=== PATIENT | male | born 1950 | race Caucasian/White ===

== ENCOUNTER 2023-05-01 11:07 | Day surgery (SDC) | payer OTHER ==
[~2023-05-01] VITALS: Ht 172.7 cm; Wt 127.9 kg
[~2023-05-01 11:07] MED LIST: ASCO500T11 PO; ATOR-507 PO; B-COTAB59 OR; CALCTAB OR; DAPA1TAB7 PO; DOXA1TAB84 PO; FLUT1AER3 IN; INSU100I33 SC; LISI2.5T47 PO; MULT-1018 OR; OMEG-20 PO; PANT40TA2 PO; PRAM0.373 PO; SEMA2INJ3 SC; VITA100T3 PO; ZINC50TA7 PO
[2023-05-01] MEDS ORDERED: ceFAZolin 2 GM/D5W50ml 50 ML IV ONE (12:55)
[2023-05-01] MEDS ORDERED: BUPIVACAINE HCL 0 ML ONE (13:52)
[2023-05-01] MEDS ORDERED: LIDOCAINE 2%HCL (LOCAL ANESTH.) INJ 10ml MDV ONE (13:52)
[2023-05-01] MEDS ORDERED: BUPIVACAINE 0.5% P/F INJ 10 ML VIAL ONE (14:30)
[2023-05-01] MEDS ORDERED: fentaNYL CITRATE 100 MCG/2 ML VL ONE (14:45)
[2023-05-01] MEDS ORDERED: MIDAZOLAM HCL 2MG/2ML 2ml VIAL (1mg/ml) ONE (14:45)
[2023-05-01] MEDS ORDERED: ONDANSETRON HCL 4 MG/2 ML VIAL ONE (15:07)
[2023-05-01] MEDS ORDERED: LIDOCAINE 1% INJ PF 5ML AMP ONE (15:07)
[2023-05-01] MEDS ORDERED: PROPOFOL 10 MG/ML 20 ML IV ONE (15:07)
[2023-05-01] MEDS ORDERED: HYDROmorphone HCL 2 MG/ML VL/or syr IV PRN ×2 (15:15)
[2023-05-01] MEDS ORDERED: ONDANSETRON HCL 4 MG/2 ML VIAL IV ONE (15:15)
[2023-05-01 15:22] VITALS: TEMP 98.2
[2023-05-01 16:00] VITALS: BP 131/80; PULSE 86; RESP 15; O2SAT 95
== END 2023-05-01 16:15 | disposition home or self-care (01) ==
LOC: SUR 11:07
PROVIDERS: ATTEND Orthopaedic Surgery
DX: G56.01 Carpal tunnel syndrome, right upper limb (principal); I10 Essential (primary) hypertension; K21.9 Gastro-esophageal reflux disease without esophagitis; G51.0 Bell's palsy; N40.0 Benign prostatic hyperplasia without lower urinary tract symptoms; E78.5 Hyperlipidemia, unspecified; F41.9 Anxiety disorder, unspecified; J44.9 Chronic obstructive pulmonary disease, unspecified; E11.9 Type 2 diabetes mellitus without complications; E66.9 Obesity, unspecified; Z98.52 Vasectomy status; Z90.49 Acquired absence of other specified parts of digestive tract; Z87.891 Personal history of nicotine dependence; Z79.4 Long term (current) use of insulin; Z79.899 Other long term (current) drug therapy; Z98.890 Other specified postprocedural states; Z68.41 Body mass index [BMI] 40.0-44.9, adult
CPT/HCPCS: 64721; 82962; J0690; J2001; J2250; J2405; J2704; J3010; J3490